=== PATIENT | female | born 1970 | race African-American/Black ===

== ENCOUNTER 2017-09-03 18:02 | Emergency (ER) | payer MEDICAID ==
[~2017-09-03] VITALS: Ht 167.6 cm; Wt 142.0 kg
--- NOTE | 2017-09-03 18:02 | NUR ---
BBRA 40 C/O RIGHT CP [id number] PLAN COORDINATOR FROM [place] [facility] NO MEDS GIVEN IN FIELD. PLACED ON MONITOR. AWAITING MD ORDER .
--- NOTE | 2017-09-03 18:15 | NUR ---
RAC #20 IV ACCESS. BLOOD SAMPLE COLLECTED SENT TO LAB
[2017-09-03] MEDS ORDERED: ASPIRIN 325 MG TABLET ONE (18:17)
[2017-09-03 18:23] LABS: BASOPHILS % (AUTO) 0.6 % (0.0-2.0); EOSINOPHILS # (AUTO) 0.1 /CMM (0.0-0.7); EOSINOPHILS % (AUTO) 0.9 % (0.0-6.0); HEMATOCRIT 35 % (33-45); LYMPHOCYTES # (AUTO) 1.3 /CMM (0.8-4.8); LYMPHOCYTES % (AUTO) 18.5 % (20.0-44.0); MEAN CORPUSCULAR HEMOGLOBIN 28 PG (26.0-33.0); MEAN CORPUSCULAR HGB CONC 32 g/dl (31.0-36.0); MEAN CORPUSCULAR VOLUME 87 fL (82-100); MONOCYTES # (AUTO) 0.4 /CMM (0.1-1.30); NEUTROPHILS # (AUTO) 5.4 /CMM (1.8-8.9); PLATELET COUNT (AUTO) 319 /CMM (150-450); RED BLOOD CELL COUNT(AUTO) 3.97 MIL/uL (4.0-5.2); WHITE BLOOD COUNT (AUTO) 7.2 K/uL (4.3-11.0)
[2017-09-03] MEDS ORDERED: ASPIRIN 325 MG TABLET PO ONE (18:30)
--- NOTE | 2017-09-03 18:31 | NUR ---
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
[2017-09-03 18:33] LABS: CALCIUM, SERUM 8.2 mg/dL (8.5-10.1); CARBON DIOXIDE 28 mmol/L (21-32); CHLORIDE 106 mmol/L (98-107); CREATININE 0.8 mg/dL (0.6-1.3); GLUCOSE 98 mg/dL (74-106); POTASSIUM 4.6 mmol/L (3.5-5.1); SODIUM SERUM 139 mmol/L (136-145); UREA NITROGEN, BLOOD 20 mg/dL (7-18)
[2017-09-03 18:42] LABS: TROPONIN I < 0.017 ng/mL (0.00-0.056)
--- NOTE | 2017-09-03 19:03 | NUR ---
REPORT GIVEN TO ELIZABETH FOR BERYL
--- NOTE | 2017-09-03 19:07 | NUR ---
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
--- NOTE | 2017-09-03 20:20 | NUR ---
PT UP TO D/C, BREATHING EVEN/UNLABORED, NO C/O PAIN AT THIS TIME, IV D/C INTACT.
[2017-09-03] MEDS ORDERED: AMLODIPINE BESYLATE 5 MG TABLET PO ONE (20:30)
[2017-09-03] MEDS ORDERED: AMLODIPINE BESYLATE 5 MG TABLET ONE (20:30)
[2017-09-03 20:39] VITALS: BP 149/92
== END 2017-09-03 18:23 | disposition home or self-care (01) ==
LOC: ER 18:04
DX: R07.89 Other chest pain (principal); E66.9 Obesity, unspecified; D64.9 Anemia, unspecified; I10 Essential (primary) hypertension; F32.9 Major depressive disorder, single episode, unspecified; F17.200 Nicotine dependence, unspecified, uncomplicated
CPT/HCPCS: 36415; 71010; 80048; 84484; 85025; 93005; 99285; A4606; Z7610